=== PATIENT | male | born 1945 | race Caucasian/White ===

== ENCOUNTER → 2016-04-01 | Outpatient (CLI) | payer MEDICARE, MEDICAID ==
[~2016-04-01] MED LIST: ALBUTEROL0.09 MG/A2 IH; ASPIR-TRIN325 MG PO; AVPAK EXTENDED100 M1 PO; BENADRYL25 MG PO; CITALOPRAM HYDR10 MG PO; CLINDAMYCIN150 MG PO; CLONIDINE0.2 MG PO; CORDROL20 MG PO; DARVOCET N 1001 TAB PO; DICLOFENAC SOD75 MG PO; DILANTIN; DILANTIN100 MG PO; DILANTIN50 MG PO; DUONEB 3ML 3 MG/3 ML INH; GLUCOPHAGE500 M1 PO; HYDRALAZINE HC100 MG PO; HYDROCODONE BIT1 T11 PO; KEFLEX500 MG PO; LEVAQUIN750 MG PO; LIPITOR10 MG PO; LISINOPRIL30 MG PO; Lotrimin 1%15 GM PO; MELATONIN3 M1; METOPROLOL50 MG; Metformin Hydr500 MG PO; OMNICEF300 MG PO; Oscal,Oyster S500 MG PO; PLAVIX75 MG; PLAVIX75 MG PO; POTASSIUM25 MEQ PO; PREDNICOT20 MG PO; PREDNISONE10 MG PO; PRINIVIL20 MG; PROTONIX40 MG PO; TYLENOL WITH CO1 TA1 PO; VIBRAMYCIN100 MG PO; VICO10300 PO; VICODIN 5/500 505 MG PO; VICODIN 500 MG-1 TAB PO; VITAMIN D50000 I1 PO; VITAMIN D50000 I2; VITAMIN D50000 I3 PO; ZITHROMAX Z PA250 MG PO; ZOFRAN ODT4 MG SL; ZOFRAN4 MG PO
== END | disposition home or self-care (01) ==
LOC: CT 11:47
DX: S82.491A Other fracture of shaft of right fibula, initial encounter for closed fracture (principal); X58.XXXA Exposure to other specified factors, initial encounter; Y93.89 Activity, other specified; Y92.89 Other specified places as the place of occurrence of the external cause; Y99.8 Other external cause status

== ENCOUNTER 2017-01-12 10:09 | Emergency (ER) | payer MEDICARE, MEDICAID ==
[~2017-01-12] VITALS: Wt 116.1 kg
[2017-01-12 10:52] VITALS: BP 140/66
[2017-01-12 11:15] LABS: BASO % 0.4 % (0.0-1.0); EOS # 0.5 10*3/uL (0.0-0.4); EOS % 6.8 % (1.0-4.0); HEMATOCRIT 33.8 % (42.0-52.0); HEMOGLOBIN 11.3 g/dl (14.0-18.0); LYMPH # 1.3 10*3/uL (1.3-4.4); LYMPH % 17.3 % (27.0-41.0); MEAN CELL VOLUME 88.7 fl (80.0-94.0); MEAN CORPUSCULAR HGB 29.7 pg (27.0-31.0); MEAN CORPUSCULAR HGB CONC 33.4 g/dl (33.0-37.0); MEAN PLATELET VOLUME 8.9 fl (9.6-12.3); MONO # 0.6 10*3/uL (0.1-1.0); MONO % 7.9 % (3.0-9.0); NEUT % 67.3 % (47.0-73.0); PLATELET COUNT AUTOMATED 282 10*3/uL (130-400); RED BLOOD COUNT 3.81 10*6/uL (4.50-5.90); RED CELL DISTRI WIDTH 13.1 % (0-14.5); WHITE BLOOD COUNT 7.4 10*3/uL (4.8-10.8)
[2017-01-12 11:24] LABS: ACT PARTIAL THROMBO TIME 23.4 SECONDS (20.8-31.5)
[2017-01-12 11:31] LABS: ALBUMIN 3.3 gm/dl (3.1-4.5); ALKALINE PHOSPHATASE 96 U/L (45-117); BUN 10 mg/dl (7-24); CHLORIDE 104 mmol/L (98-107); CREATININE 0.79 mg/dL (0.70-1.30); SGOT/AST 8 IU/L (3-35); SGPT/ALT 17 U/L (12-78); SODIUM 138 mmol/L (136-145); TOTAL PROTEIN 7.3 gm/dL (6.4-8.2)
[2017-01-12 11:32] LABS: TROPONIN I 0.022 ng/ml (<0.045)
== END 2017-01-12 13:33 | disposition home or self-care (01) ==
LOC: ED 10:09
PROVIDERS: Emergency Medicine
DX: R07.89 Other chest pain (principal); M54.2 Cervicalgia; M25.512 Pain in left shoulder; E11.9 Type 2 diabetes mellitus without complications; I10 Essential (primary) hypertension; Z91.041 Radiographic dye allergy status; Z88.8 Allergy status to other drugs, medicaments and biological substances; Z79.899 Other long term (current) drug therapy

== ENCOUNTER → 2017-07-22 | Outpatient (CLI) | payer MEDICARE, MEDICAID | END | disposition home or self-care (01) | LOC: RAD 11:57 | DX: M25.78 Osteophyte, vertebrae (principal) ==

== ENCOUNTER 2017-09-27 18:24 | Emergency (ER) | payer MEDICARE, MEDICAID ==
[~2017-09-27] VITALS: Ht 162.5 cm; Wt 117.9 kg
[2017-09-27 18:26] VITALS: BP 192/94
== END 2017-09-27 20:12 | disposition home or self-care (01) ==
LOC: ED 18:24
DX: S22.42XA Multiple fractures of ribs, left side, initial encounter for closed fracture (principal); S60.222A Contusion of left hand, initial encounter; Z91.041 Radiographic dye allergy status; Z88.8 Allergy status to other drugs, medicaments and biological substances; Z79.899 Other long term (current) drug therapy; W01.198A Fall on same level from slipping, tripping and stumbling with subsequent striking against other object, initial encounter; Y93.89 Activity, other specified; Y92.89 Other specified places as the place of occurrence of the external cause; Y99.8 Other external cause status

== ENCOUNTER 2017-11-12 10:05 | Emergency (ER) | payer MEDICARE, MEDICAID ==
[~2017-11-12] VITALS: Ht 162.5 cm; Wt 113.4 kg
--- NOTE | ~2017-11-12 | EKG ---
[place], [place] ELECTROCARDIOGRAM REPORT NAME: LAYA ETIENNE UNIT #: [id number] ROOM: DOCTOR: EPIPHANY DRAFT REPORT BIRTHDATE: [birth year] [facility] Test Date: 2017-11-12 Test Time: 10:34:00 Pat Name: LAYA ETIENNE Department: Room: Gender: Le[employer]ker: Jenn Byrd : 1945 Requested By: FALLON CABALLERO Order Number: [id number] Reading MD: David Ojeda MD Measurements Intervals [place] Rate: 134 P: DE: QRS: -49 QRSD: 174 T: 117 QT: 356 QTc: 532 Interpretive Statements Atrial fibrillation Left bundle branch block Compared to ECG 11/04/2017 20:10:32 Ventricular premature complex(es) no longer present Electronically Signed On 11-13-2017 13:36:02 PDT by David Ojeda MD CM:EKGRPT:ELECTROCARDIOGRAM REPORT [id number] RE[address] FALLON CABALLERO M.D.
[2017-11-12 10:40] LABS: HEMATOCRIT 39.4 % (42.0-52.0); HEMOGLOBIN 12.7 g/dl (14.0-18.0); MEAN CELL VOLUME 87.9 fl (80.0-94.0); MEAN CORPUSCULAR HGB 28.3 pg (27.0-31.0); MEAN CORPUSCULAR HGB CONC 32.2 g/dl (33.0-37.0); MEAN PLATELET VOLUME 10.6 fl (9.6-12.3); NUCLEATED RED BLOOD CELL 0.2 10*3/uL (0.0-0.0); NUCLEATED RED BLOOD CELL 1.4 % (0.0-0.0); PLATELET COUNT AUTOMATED 188 10*3/uL (130-400); RED BLOOD COUNT 4.48 10*6/uL (4.50-5.90); RED CELL DISTRI WIDTH 14.2 % (0-14.5); WHITE BLOOD COUNT 10.7 10*3/uL (4.8-10.8)
[2017-11-12 10:52] LABS: ABG HCO3 19.9 mmol/l (22-26); ABG O2 SATURATION 98.5 % (95-97); ARTERIAL BLOOD GAS PCO2 29.6 mmHg (35-45); ARTERIAL BLOOD GAS PH 7.439 (7.35-7.45)
[2017-11-12 10:56] LABS: ALBUMIN 2.9 gm/dl (3.1-4.5); CREATININE 1.61 mg/dL (0.70-1.30); POTASSIUM 4.9 mmol/L (3.5-5.1); TOTAL PROTEIN 6.7 gm/dL (6.4-8.2)
[2017-11-12 11:00] LABS: BURR CELLS FEW; PLATELET SUFFICIENCY NORMAL (NORMAL); TOTAL CELLS COUNTED 100 #CELLS
[2017-11-12 11:16] LABS: TROPONIN I 0.227 ng/ml (<0.045)
[2017-11-12 14:59] VITALS: BP 131/94
== END 2017-11-12 17:44 | disposition short-term general hospital (02) ==
LOC: ED 10:05
PROVIDERS: Emergency Medicine
DX: R07.9 Chest pain, unspecified (principal); Z90.49 Acquired absence of other specified parts of digestive tract; Z79.899 Other long term (current) drug therapy; Z91.041 Radiographic dye allergy status; Z88.8 Allergy status to other drugs, medicaments and biological substances